=== PATIENT | male | born 1995 | race African-American/Black ===

== ENCOUNTER 2017-01-21 17:08 | Emergency (ER) | payer SELFPAY ==
[~2017-01-21 17:08] MED LIST: AUGM875T PO; CONC54TA4 PO; IBUP-232 PO
[2017-01-21 17:10] VITALS: BP 135/81; PULSE 15; PULSE 75; RESP 16; TEMP 98.2; O2SAT 97
== END 2017-01-21 17:21 | disposition left against medical advice (07) ==
LOC: NED 17:08
DX: R68.89 Other general symptoms and signs (principal)
CPT/HCPCS: 99281

== ENCOUNTER 2017-02-19 21:35 | Emergency (ER) | payer OTHER ==
[~2017-02-19] VITALS: Ht 172.7 cm; Wt 54.0 kg
[2017-02-19 21:37] VITALS: BP 134/88; PULSE 83; RESP 15; TEMP 98.1; O2SAT 98
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
[2017-02-19] MEDS ORDERED: CYCL1TAB29 PO (22:06)
[2017-02-19] MEDS ORDERED: DICL75TA PO (22:06)
[2017-02-19] MEDS ORDERED: NAPROXEN 500 MG TAB PO ONE (22:15)
[2017-02-19] MEDS ORDERED: CYCLOBENZAPRINE HCL 10 MG TAB PO ONE (22:15)
== END 2017-02-19 22:30 | disposition home or self-care (01) ==
LOC: NEPK 21:35
DX: S40.012A Contusion of left shoulder, initial encounter (principal); S50.02XA Contusion of left elbow, initial encounter; V47.5XXA Car driver injured in collision with fixed or stationary object in traffic accident, initial encounter
CPT/HCPCS: 99283

== ENCOUNTER 2017-11-14 19:50 | Emergency (ER) | payer OTHER ==
[~2017-11-14 19:50] MED LIST changes: -AUGM875T PO; -CONC54TA4 PO; +CYCL10TA PO; +DICL75TA PO; -IBUP-232 PO
[2017-11-14 19:52] VITALS: BP 139/63; PULSE 80; RESP 16; TEMP 98.3; O2SAT 100
--- NOTE | 2017-11-14 20:26 | RADRPT ---
EXAM DATE/TIME: 11/14/2017 20:06 [facility] COMPARISON: No previous studies available for comparison. INDICATIONS : Fracture. MEDICAL HISTORY : None. SURGICAL HISTORY : None. ENCOUNTER: Initial ACUITY: 2 days PAIN SCORE: 10/10 LOCATION: Right Digit/phalanx. FINDINGS: Three view examination of the right hand demonstrates no soft tissue swelling, dislocation, or fractu re. The carpal bones appear intact. The interphalangeal and metacarpophalangeal joints are intact. Bony mineralization is normal. CONCLUSION: 1. No acute bony abnormalities. Wolfgang George MD on November 14, 2017 at 20:21 Board Certified Radiologist. This report was verified electronically.
[2017-11-14] MEDS ORDERED: IBUPROFEN 600 MG TAB PO ONE (21:15)
[2017-11-14] MEDS ORDERED: IBUP-232 PO (21:17)
--- NOTE | 2017-11-14 21:17 | PD ---
HPI Chief Complaint: Musculoskeletal Complaint Time Seen by Provider: 21:05 Travel History International Travel<30 days: No Contact w/Intl Traveler<30days: No Traveled to known affect area: No History of Present Illness HPI 22-year-old male with history of asthma presents to emergency department for evaluation of right thumb pain. Patient states that he jammed it yesterday while working. He has been having significant pain at the bases well as pressure under the nail. Pain is a 10 out of 10, constant, throbbing. Pain is exacerbated with movement. He denies any alterations in sensation. He has no other symptoms to report. PFSH Past Medical History ADHD: Yes Asthma: Yes (ASTHMA, PRN NEBS) Autoimmune Disease: No Developmental Delay: No Diminished Hearing: No Gastrointestinal Disorders: No Neurologic: No Respiratory: Yes (ASTHMA) Immunizations Current: Yes Seizures: Yes (HX OF PETIT MAL SEIZURES) Past Surgical History Other Surgery: No Social History Alcohol Use: Yes (OCCASIONALLY) Tobacco Use: Yes (5 CIGS/DAY) Substance Use: No Allergies-Medications (Allergen,Severity, Reaction): Coded Allergies: azithromycin (Unverified Allergy, Severe, rash, 06/24/17) Reported Meds & Prescriptions Reported Meds & Active Scripts Active Ibuprofen 600 Mg Tab 600 Mg PO Q8HR PRN Flexeril (Cyclobenzaprine HCl) 10 Mg Tab 10 Mg PO TID Diclofenac Sodium DR (Diclofenac Sodium) 75 Mg Tabdr 75 Mg PO BID Review of Systems Except as stated in HPI: all other systems reviewed are Neg Physical Exam Narrative GENERAL: Well-nourished, well-developed male patient in no acute distress. SKIN: Focused skin assessment warm/dry. Subungual hematoma noted of the right thumbnail. HEAD: Normocephalic. EYES: No scleral icterus. No injection or drainage. NECK: Supple, trachea midline. No JVD or lymphadenopathy. CARDIOVASCULAR: Regular rate and rhythm without murmurs, gallops, or rubs. RESPIRATORY: Breath sounds equal bilaterally. No accessory muscle use. MUSCULOSKELETAL: No cyanosis. Moderate edema at the base of the right thumb. Tenderness to palpationof the right thumb as well as snuffbox tenderness. Patient is reluctant to move the thumb secondary to pain. Cap refill is within normal limits. Distal pulses are palpable. BACK: Nontender without obvious deformity. No CVA tenderness. Data Data Last Documented VS Vital Signs Date Time Temp Pulse Resp B/P (MAP) Pulse Ox O2 Delivery O2 Flow Rate FiO2 11/14/17 22:24 11/14/17 19:52 98.3 80 16 100 Room Air Orders Orders Hand, Complete ([id number]) (11/14/17 ) Splint Or Brace Apply/Monitor (11/14/17 21:14) Ibuprofen (Motrin) (11/14/17 21:15) Ed Discharge Order (11/14/17 21:15) Fiberglass Thumb Spica Adult (11/14/17 ) MDM Medical Decision Making Medical Screen Exam Complete: Yes Emergency Medical Condition: Yes Medical Record Reviewed: Yes Differential Diagnosis Sprain versus contusion versus fracture versus dislocation Narrative Course 22-year-old male presents emergency department for evaluation of right thumb injury. X-ray imaging confirms no acute bony abnormality. Patient is placed in a thumb spica splint for support. He is counseled on care. I encouraged follow-up with hand specialist. He agrees to return immediately with any acute worsening symptoms. Diagnosis Primary Impression: Sprain of right thumb Qualified Codes: S63.641A - Sprain of metacarpophalangeal joint of right thumb , initial encounter Additional Impression: Subungual hematoma of right thumb Qualified Codes: S60.111A - Contusion of right thumb with damage to nail, initial encounter Referrals: Hand Surgeon Primary Care Physician Patient Instructions: General Instructions, Skier's Thumb (ED) Additional Instructions: Elevate to reduce pain and swelling Brace for support. Do not remove your splint until you follow up with a hand specialist or workmen comp approved-provider Return immediately with any acute worsening symptoms Med/Other Pt SpecificInfo: Prescription(s) given Scripts Ibuprofen (Ibuprofen) 600 Mg Tab 600 MG PO Q8HR Y for PAIN, #30 TAB 0 Refills Prov: Rylee Payton 11/14/17 Disposition: 01 DISCHARGE HOME Condition: Stable Rylee Payton Nov 14, 2017 21:17
== END 2017-11-14 22:25 | disposition home or self-care (01) ==
LOC: NEPK 19:50
DX: S63.641A Sprain of metacarpophalangeal joint of right thumb, initial encounter (principal); S60.111A Contusion of right thumb with damage to nail, initial encounter; W23.0XXA Caught, crushed, jammed, or pinched between moving objects, initial encounter
CPT/HCPCS: 29125; 73130; 99283; L3808